=== PATIENT | female | born 1975 | race Caucasian/White ===

== ENCOUNTER 2021-11-26 07:52 | Outpatient (REF) | payer OTHER, SELFPAY ==
[2021-11-26 12:00] LABS: MANUAL DIFF FLAG NO
[2021-11-26 12:10] LABS: Basophils Percent Auto 0.7 % (0-2); Eosinophils Absolute Auto 0.2 X10*3/uL (0.0-0.4); Eosinophils Percent Auto 2.6 % (0-4); Hematocrit 38.7 % (37.0-47.0); Hemoglobin 12.4 g/dl (12.0-16.0); Imm Gran Abs Auto 0.02 X10*3/uL (0.00-0.03); Imm Gran Pct Auto 0.3 % (0.0-0.4); Lymphocytes Absolute Auto 1.9 X10*3/uL (1.2-4.9); Lymphocytes Percent Auto 32.9 % (20-40); Mean Corpuscular Hemoglobin 27.3 pg (27.0-33.0); Mean Corpuscular Volume 85.1 fL (80.0-98.0); Mean Platelet Volume 10.2 fL (9.4-12.3); Monocytes Absolute Auto 0.5 X10*3/uL (0.1-1.2); Monocytes Percent Auto 8.1 % (2-11); Neutrophils Absolute Auto 3.2 x10*3/uL (2.0-8.3); Neutrophils Percent Auto 55.4 % (45-73); Platelet Count 314 X10*3/uL (160-400); Red Blood Count 4.55 X10*6/uL (4.20-5.50); Red Cell Distribution Width 14.2 % (11.0-16.0); White Blood Count 5.8 X10*3/uL (4.8-10.8)
[2021-11-26 12:10] LABS: Appearance Urine CLOUDY; Color Urine YELLOW; Glucose Urine UA NEG (NEG); Leukocyte Esterase Urine NEG (NEG); Nitrite Urine NEG (NEG); Urine Blood NEG (NEG); Urine Ketones NEG (NEG); Urine Protein NEG (NEG-TRACE)
[2021-11-26 12:35] LABS: Alanine Aminotransferase 36 U/L (0-31); Alkaline Phosphatase 52 U/L (39-117); Anion Gap 12 (12-20); Aspartate Amino Transferase 32 U/L (5-31); Bilirubin Total 0.3 mg/dL (0.0-1.0); Blood Urea Nitrogen 16 mg/dL (9-16); Calcium 9.1 mg/dL (8.4-10.2); Carbon Dioxide 26 mmol/L (22-29); Chloride 105 mmol/L (96-108); Cholesterol 244 mg/dL; Estimated Glomerular Filt Rate > 60; Glucose Fasting 96 mg/dL (60-99); HDL Cholesterol 72 mg/dL; LDL Cholesterol Calculated 150 mg/dl; Sodium 138 mmol/L (135-145); Total Protein 6.9 g/dL (6.5-8.0); Triglycerides 114 mg/dL
[2021-11-26 12:40] LABS: TSH reflex Free T4 0.89 uIU/mL (0.32-4.0)
[2021-11-26 12:43] LABS: Bacteria Urine 3+ /LPF; Squamous Epithelial Cell Urine 4+ /LPF
[2021-11-26 12:44] LABS: WBC Urine 0-2 /HPF (0-4)
[2021-11-26 12:45] LABS: RBC Urine 0-2 /HPF (0)
== END 2021-11-26 07:53 | disposition home or self-care (01) ==
LOC: HO.HMGCLDS 07:52
PROVIDERS: Visit Provider Internal Medicine
DX: Z00.00 Encounter for general adult medical examination without abnormal findings (principal)
CPT/HCPCS: 36415; 80053; 80061; 81001; 84443; 85025

== ENCOUNTER 2022-06-11 06:56 | Outpatient (REF) | payer OTHER, SELFPAY ==
[2022-06-11 11:51] LABS: Alanine Aminotransferase 11 U/L (0-31); Albumin Level 4.1 g/dL (3.5-5.0); Alkaline Phosphatase 48 U/L (39-117); Aspartate Amino Transferase 14 U/L (5-31); Bilirubin Direct < 0.2 mg/dL (0.0-0.5); Bilirubin Total 0.5 mg/dL (0.0-1.0); Cholesterol 245 mg/dL; HDL Cholesterol 67 mg/dL; LDL Cholesterol Calculated 161 mg/dl; Total Protein 6.8 g/dL (6.5-8.0); Triglycerides 89 mg/dL
== END 2022-06-11 06:57 | disposition home or self-care (01) ==
LOC: HO.HMGCLDS 06:56
PROVIDERS: PCP Internal Medicine; Visit Provider Internal Medicine
DX: E78.5 Hyperlipidemia, unspecified (principal)
CPT/HCPCS: 36415; 80061; 80076

== ENCOUNTER 2022-10-06 12:50 | Outpatient (REF) | payer OTHER, SELFPAY ==
--- NOTE | ~2022-10-06 | US_ITS ---
EXAMINATION: US PELVIS CLINICAL INFORMATION: History of ovarian cysts; the last menstrual period was in early 09/2022. COMPARISON: Abdominal ultrasound dated 07/27/2016; CT abdomen and pelvis dated 08/01/2016. TECHNIQUE: Ultrasound of the pelvis is performed using both transabdominal and transvaginal transducers along with Doppler. Transvaginal imaging is performed due to inadequate visualization transabdominally. FINDINGS: Uterus: The uterus is anteverted and measures 9.4 x 6.0 x 7.0 cm. The uterus is retroverted and retroflexed. The double wall endometrial thickness is 1.3 mm. The uterus is smooth in contour and has normal myometrial echogenicity. No visible fibroid. Adnexa: Both ovaries are visualized. There is normal color flow to the adnexa. There is no ovarian torsion. There is no pelvic ascites or fluid collection. Right ovary measures 3.7 x 1.6 x 2.5 cm, volume 7.8 mL. Left ovary measures 3.6 x 2.6 x 2.5 cm, volume 12.3 mL. A 2.0 x 1.9 x 2.0 cm corpus luteum cyst is incidentally noted. US/US pelvic and transvaginal IMPRESSION: A 2.0 cm left ovarian corpus luteum cyst is incidentally noted. The examination is otherwise unremarkable.
== END 2022-10-06 12:51 | disposition home or self-care (01) ==
LOC: HO.HMGCX 12:50
PROVIDERS: PCP Internal Medicine; Visit Provider Internal Medicine
DX: N83.209 Unspecified ovarian cyst, unspecified side (principal)
CPT/HCPCS: 76830; 76856

== ENCOUNTER 2023-03-13 10:19 | Outpatient (AMB) | payer OTHER, SELFPAY ==
--- NOTE | 2023-03-13 10:20 | A.OFFVIS_ITS ---
Intake Vital Signs 03/13/23 10:24 Height 5 ft 6 in Weight 157 lb BMI 25.3 BP 128/69 Blood Pressure Location Rt brachial Position Sitting Pulse 66 Intake Visit Reasons: ER appendectomy in [place] due for s/r Intake Note: Patient here s/p appendectomy in [place] on 02-27-23. Feeling well. Not taking rx pain meds. Has sutures to be removed. Pharmacy Intake Technician Required: No Accompanied by: Jrzye Allergies azithromycin [Zithromax Z-Loki] Allergy (Intermediate, Verified 03/13/23 10:26) Rash prednisolone Allergy (Unknown, Verified 03/13/23 10:26) Anxiety HPI HPI Comments History of Present Illness Details Patient presents with her . She is status post laparoscopic appendectomy in [place]. She is approximately 2 weeks postop. She presents here for suture removal. Patient is doing well. She has time diet having normal bowel habits. He is ambulating well with minimal incisional discomfort. [facility] Surgical History (Updated 03/13/23 @ 10:48 by Luisito Kruse MD) History of appendectomy Family History (Updated 11/11/21 @ 13:39 by Kyung Pablo MD) Father Cancer Social History Housing: House Patient Tobacco Use Status: Never used Tobacco e-Cigarette/Vaping Use: Never Used service: No Current occupational status: employed Cognitive needs: No Hearing needs: No Vision needs: Yes Physical Exam Vital Signs: Last Vital Signs Pulse 66 03/13/23 10:24 BP 128/69 03/13/23 10:24 BMI result Body Mass Index 25.3 GI Other: Abdomen soft. All wounds clean dry and intact. Patient had uneventful suture removal from 3 port sites. Assessment & Plan Assessment & Plan (1) Status post laparoscopic appendectomy: Code(s): Z90.49 - Acquired absence of other specified parts of digestive tract Plan Patient has been given local instructions, and will follow-up p.r.n.. Incidentally, patient had polypectomy in [place] and would like to have follow-up GI surveillance. Arrangements were made for this with the gastroenterology department. Coding Level of Care Code New Pt Level 4 (90166) Diagnoses Status post laparoscopic appendectomy Z90.49
[2023-03-13 10:24] VITALS: BP 128/69; PULSE 66; BMI 25.3
== END 2023-03-13 10:44 | disposition home or self-care (01) ==
PROVIDERS: PCP Internal Medicine; Visit Provider Surgery
DX: Z90.49 Acquired absence of other specified parts of digestive tract (principal)
CPT/HCPCS: 99204

== ENCOUNTER → 2023-03-13 10:19 | Outpatient (BNVA) | payer OTHER, SELFPAY | PROVIDERS: PCP Internal Medicine; Visit Provider Surgery ==

== ENCOUNTER 2025-03-27 09:19 | Outpatient (AMB) | payer OTHER, SELFPAY ==
--- NOTE | 2025-03-27 09:20 | MHC.PC.OV ---
Vital Signs 03/27/25 09:21 Height 5 ft 6 in Weight 172 lb BMI 27.8 BP 102/66 Blood Pressure Location Rt brachial Position Sitting Respiration 16 Pulse 66 Pulse Source Pulse Oximeter Temp 98.2 F Temp Source Oral Pulse Oximetry (%) 99 Oxygen Delivery Method Room Air Intake Visit Reasons: PE Intake Note: Pt is here today for PE. Allergies azithromycin (Zithromax Z-Loki) Allergy (Intermediate, Verified 03/27/25 09:23) Rash prednisolone Allergy (Unknown, Verified 03/27/25 09:23) Anxiety Medication List - Last Reconciled 03/27/25 by Kyung Pablo MD No Known Home Meds Tobacco use date assessed: 03/27/25 Dental Screening Dental Screen Date: 03/27/25 Did you have a dental visit in the last 12 months?: Yes Did you have a dental problem in the last 6 months where you did not have access to dental care?: No Was dental information given to patient?: Patient has dentist HPI PE HPI Details Pt presents for PE. PFSH Medical History (Updated 03/27/25 @ 09:53 by Kyung Pablo MD) Normal pelvic exam Annual physical exam Anemia Hyperlipidemia Surgical History (Updated 03/27/25 @ 09:35 by Kyung Pablo MD) Hx of esophagogastroduodenoscopy Hx of colonoscopy History of appendectomy Family History Father Cancer Social History Housing: House Patient Tobacco Use Status: Never used Tobacco e-Cigarette/Vaping Use: Never Used service: No Current occupational status: employed Cognitive needs: No Hearing needs: No Vision needs: Yes Questionnaire PHQ-9 Over the last 2 weeks, how often have you been bothered by any of the following problems? 1. Little interest or pleasure in doing things: not at all 2. Feeling down, depressed, or hopeless: not at all 3. Trouble falling or staying asleep, or sleeping too much: not at all 4. Feeling tired or having little energy: not at all 5. Poor appetite or overeating: not at all 6. Feeling bad about yourself - or that you are a failure or have let yourself or your family down: not at all 7. Trouble concentrating on things, such as reading the newspaper or watching television: not at all 8. Moving or speaking so slowly that other people could have noticed. Or the opposite - being so fidgety or restless that you have been moving around a lot more than usual: not at all 9. Thoughts that you would be better off or of hurting yourself in some way: not at all Total score: 0 Depression Screening Interpretation: Negative Depression Screening Done: Yes 44848 - PHQ-9 Billing: Yes Source: Developed by Drs. Bridger Bloom, Amalia Medina, Dante Billingsley and colleagues, with an educational jazz from [employer]. Thrive Questionnaire Date Thrive assessed: 03/27/25 I am a: Patient What is your living situation today?: I have a steady place to live Within the past 12 months, did the food you bought not last and you didn't have the money to get more?: Never true Within the past 12 months, did you worry whether your food would run out before you got money to buy more?: Never true Do you have trouble paying for medicines?: I choose not to answer this question Do you have trouble getting transportation to medical appointments?: No Do you have trouble paying your heating and electricity bill?: No Do you have trouble taking care of your child, family member or friend?: No Do you have trouble with day-to-day activities such as bathing, preparing meals, shopping, managing finances, etc.?: No Are you currently unemployed and looking for a job?: Yes Are you interested in more education?: No Please select the resources that you would like help with: None Currently or been in a relationship where the following occur: No concerns reported THRIVE Score: 0 AUDIT C Alcohol Use Questionnaire (AUDIT-C) 1. How often do you have a drink containing alcohol?: Never 3. How often do you have six or more drinks on one occasion?: Never Total Score: 0 DEVORAH-7 AMB Questionnaire DEVORAH-7 Date DEVORAH - 7 assessed: 03/27/25 Feeling nervous, anxious, or on edge: 0 = Not at all Not being able to stop or control worryin = Not at all Worrying too much about different things: 0 = Not at all Trouble relaxin = Not at all Being so restless that it is hard to sit still: 0 = Not at all Becoming easily annoyed or irritable: 0 = Not at all Feeling afraid as if something awful might happen: 0 = Not at all Total DEVORAH-7 score (0-4 normal; 5-9 mild; 10-14 moderate; 15-21 severe): 0 Source: Developed by Drs. Bridger Bloom, Amalia Medina, Dante Billingsley and colleagues, with an educational jazz from [employer]. DEVORAH-7 Assessment Billing DEVORAH-7 Assessment Tool: DEVORAH-7 Assessment 85544 Review of Systems Const All systems reviewed & are unremarkable except as noted in HPI and below Eyes Reports no additional complaints ENT Reports no additional complaints Card Reports no additional complaints Resp Reports no additional complaints GI Reports no additional complaints Reports no additional complaints Physical exam (Primary Care) Vital Signs: Last Vital Signs Temp 98.2 F 03/27/25 09:21 Pulse 66 03/27/25 09:21 Resp 16 03/27/25 09:21 BP 102/66 03/27/25 09:21 Pulse Ox 99 03/27/25 09:21 Oxygen Delivery Method Room Air 03/27/25 09:21 BMI result Body Mass Index 27.8 Tobacco/Smoking Status: Tobacco use Status Tobacco use date assessed 03/27/25 03/27/25 09:27 Patient Tobacco Use Status Never used Tobacco 03/27/25 09:27 e-Cigarette/Vaping Use Never Used 03/27/25 09:27 PHQ-9: PHQ-9 Score PHQ-9: Total score 0 03/27/25 09:27 Depression Screening Interpretation: Negative Thrive Assessment: Date of Thrive Assessment Date Thrive assessed 03/27/25 03/27/25 09:27 Currently or been in a relationship where the following occur: No concerns reported Const General: no acute distress HENMT Head: Yes normal to inspection Face and sinus: Yes normal facial exam Mouth: Normal oral and palatal mucosa present Throat: Yes posterior oropharynx normal Eyes General: appearance normal, both eyes and all related structures Neck Neck: Yes no lymphadenopathy and Yes supple Resp Effort & Inspection: normal respiratory effort Auscultation: clear to auscultation bilaterally Cardio Rhythm: regular rhythm Heart sounds: S1 normal heart sound present and S2 normal heart sound present GI Inspection: Yes normal to inspection Palpation (GI): Soft to palpation Percussion: Yes normal to percussion Auscultation: normal bowel sounds Coding Level of Care Code Est Pt Prev Care 40-64y(63209) Diagnoses Annual physical exam Z00.00 Hyperlipidemia E78.5 Anemia D64.9 Additional Codes DEVORAH-7 Assessment Billing - DEVORAH-7 Assessment Tool: DEVORAH-7 Assessment 67418 ([id number]) PHQ-9 - 52462 - PHQ-9 Billing: Yes ([id number]) Assessment & Plan Assessment & Plan (1) Annual physical exam: Code(s): Z00.00 - Encounter for general adult medical examination without abnormal findings Category: Medical Plan: Well-balanced diet regular physical activity discussed with the patient. 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 Patient had a breast ultrasound done in [place] for breast cancer screening. She declined mammogram. Patient had negative colonoscopy in [place] in 2022 (2) Hyperlipidemia: Code(s): E78.5 - Hyperlipidemia, unspecified Category: Medical Plan: Low-cholesterol diet regular physical activity discussed with the patient, check blood work today (3) Anemia: Comment: Secondary to heavy menses Code(s): D64.9 - Anemia, unspecified Category: Medical Plan: Monitor CBC check iron studies. Patient will continue to take iron supplement Orders: Orders Complete Blood Count Auto Diff Today D64.9 - Anemia, unspecified, E78.5 - Hyperlipidemia, unspecified, Z00.00 - Encounter for general adult medical examination without abnormal findings IRON PROFILE Today D64.9 - Anemia, unspecified, E78.5 - Hyperlipidemia, unspecified, Z00.00 - Encounter for general adult medical examination without abnormal findings Comprehensive [place]. Panel Fast Today D64.9 - Anemia, unspecified, E78.5 - Hyperlipidemia, unspecified, Z00.00 - Encounter for general adult medical examination without abnormal findings Lipid Panel Today D64.9 - Anemia, unspecified, E78.5 - Hyperlipidemia, unspecified, Z00.00 - Encounter for general adult medical examination without abnormal findings Ova and Parasite Today D64.9 - Anemia, unspecified, E78.5 - Hyperlipidemia, unspecified, Z00.00 - Encounter for general adult medical examination without abnormal findings TSH reflex Free T4 Today D64.9 - Anemia, unspecified, E78.5 - Hyperlipidemia, unspecified, Z00.00 - Encounter for general adult medical examination without abnormal findings UA w Microscopic Today D64.9 - Anemia, unspecified, E78.5 - Hyperlipidemia, unspecified, Z00.00 - Encounter for general adult medical examination without abnormal findings Vitamin D 25-OH Total Today D64.9 - Anemia, unspecified, E78.5 - Hyperlipidemia, unspecified, Z00.00 - Encounter for general adult medical examination without abnormal findings
[2025-03-27 09:21] VITALS: BP 102/66; PULSE 66; RESP 16; TEMP 36.8; O2SAT 99; BMI 27.8
== END 2025-03-27 09:55 | disposition home or self-care (01) ==
LOC: HO.HMCC 09:20
PROVIDERS: PCP Internal Medicine; Visit Provider Internal Medicine
DX: Z00.00 Encounter for general adult medical examination without abnormal findings (principal); E78.5 Hyperlipidemia, unspecified; D64.9 Anemia, unspecified

== ENCOUNTER 2025-03-27 09:19 | Outpatient (REF) | payer OTHER, SELFPAY ==
[2025-03-27 13:12] LABS: MANUAL DIFF FLAG NO
[2025-03-27 13:26] LABS: Hematocrit 40.7 % (37.0-47.0); Hemoglobin 13.1 g/dl (12.0-16.0); Imm Gran Abs Auto 0.01 X10*3/uL (0.00-0.03); Imm Gran Pct Auto 0.2 % (0.0-0.4); Lymphocytes Absolute Auto 1.9 X10*3/uL (1.2-4.9); Mean Corpuscular HGB Conc 32.2 g/dl (31.0-35.0); Mean Corpuscular Hemoglobin 27.2 pg (27.0-33.0); Mean Corpuscular Volume 84.6 fL (80.0-98.0); NRBC Abs Auto 0.000 X10*3/uL (0.0-0.012); NRBC Pct Auto 0.0 /100WBC (0.0-0.2); Platelet Count 351 X10*3/uL (160-400); Red Blood Count 4.81 X10*6/uL (4.20-5.50); White Blood Count 6.2 X10*3/uL (4.8-10.8)
[2025-03-27 13:38] LABS: Appearance Urine Clear; Glucose Urine UA Negative (Negative); PH 6.5 (5.0-9.0); Specific Gravity - Urine 1.015 (1.005-1.025)
[2025-03-27 13:42] LABS: Alanine Aminotransferase 28 U/L (0-31); Albumin Level 4.3 g/dL (3.5-5.0); Alkaline Phosphatase 56 U/L (39-117); Anion Gap 12 (12-20); Aspartate Amino Transferase 24 U/L (5-31); Blood Urea Nitrogen 12 mg/dL (9-16); Calcium 9.4 mg/dL (8.4-10.2); Carbon Dioxide 26 mmol/L (22-29); Chloride 106 mmol/L (96-108); Cholesterol 242 mg/dL (<200); Estimated Glomerular Filt Rate > 60; HDL Cholesterol 66 mg/dL (>40); Iron 63 mcg/dL (30-160); Percent Iron Saturation 18 % (15-50); Potassium 4.9 mmol/L (3.3-5.1); Sodium 139 mmol/L (135-145); Total Iron Binding Capacity 351 mcg/dL (228-428); Total Protein 7.1 g/dL (6.5-8.0); Triglycerides 110 mg/dL (<150); Unsaturated Iron Binding 288 ug/dL
== END 2025-03-27 09:20 | disposition home or self-care (01) ==
LOC: HO.HMGCLDS 09:19
PROVIDERS: PCP Internal Medicine; Visit Provider Internal Medicine
DX: Z00.00 Encounter for general adult medical examination without abnormal findings (principal); E78.5 Hyperlipidemia, unspecified; D64.9 Anemia, unspecified; Z13.31 Encounter for screening for depression; Z13.39 Encounter for screening examination for other mental health and behavioral disorders
CPT/HCPCS: 36415; 80053; 80061; 81001; 82306; 83540; 84443; 85025; 87177; 87209; 96127